=== PATIENT | male | born 1985 | race Caucasian/White ===

== ENCOUNTER 2017-05-30 20:14 | Emergency (ER) | payer OTHER ==
[~2017-05-30] VITALS: Ht 182.9 cm; Wt 79.4 kg
[~2017-05-30 20:14] MED LIST: ALPR0.25 PO; CLON0.5T PO; QUET25TA PO
--- NOTE | 2017-05-30 20:35 | NUR ---
To bed 8 a 31 yo male patient bb self; back pain, ran out of pain meds; SI without plan. vss. nad noted. safety and comfort measures in place. needs anticipated.
[2017-05-30 21:02] LABS: APPEARANCE,URINE Clear (CLEAR); BILIRUBIN,URINE SMALL (NEGATIVE); BLOOD, URINE Negative Ery/uL (NEGATIVE); COLOR,URINE Yellow (YELLOW); KETONES,URINE 15 (NEGATIVE); LEUKOCYTE ESTERASE ,URINE Negative (NEGATIVE); NITRITE, URINE Negative (NEGATIVE); PH,URINE 7.5 (5.0-8.0); PROTEIN,URINE 100 mg/dl (NEGATIVE); UGLUCOSE Negative (NEGATIVE); UROBILINOGEN,URINE 0.2 EU/dL (0.2)
[2017-05-30] MEDS ORDERED: TRAMADOL HCL 50 MG TABLET ONE (21:04)
[2017-05-30] MEDS: TRAMADOL HCL 50 MG TABLET PO ONE (21:06)
[2017-05-30 21:07] LABS: BASOPHILS # (AUTO) 0.3 /CMM (0.0-0.2); BASOPHILS % (AUTO) 1.9 % (0.0-2.0); EOSINOPHILS % (AUTO) 0.3 % (0.0-6.0); HEMATOCRIT 48 % (39-51); LYMPHOCYTES # (AUTO) 1.3 /CMM (0.8-4.8); MEAN CORPUSCULAR HEMOGLOBIN 31 PG (26.0-33.0); MEAN CORPUSCULAR HGB CONC 36 g/dl (31.0-36.0); MEAN CORPUSCULAR VOLUME 88 fL (80-96); MONOCYTES # (AUTO) 0.6 /CMM (0.1-1.30); MONOCYTES % (AUTO) 4.5 % (2.0-12.0); NEUTROPHILS # (AUTO) 11.8 /CMM (1.8-8.9); NEUTROPHILS % (AUTO) 84.3 % (43.0-81.0); PLATELET COUNT (AUTO) 249 /CMM (150-450); RDW COEFFICIENT OF VARIATION 11.7 (11.5-15.0); RED BLOOD CELL COUNT(AUTO) 5.45 MIL/uL (4.5-6.0)
[2017-05-30 21:16] LABS: CALCIUM, SERUM 10.3 mg/dL (8.5-10.1); CARBON DIOXIDE 28 mmol/L (21-32); CHLORIDE 97 mmol/L (98-107); CREATININE 1.2 mg/dL (0.6-1.3); GLUCOSE 109 mg/dL (74-106); POTASSIUM 3.9 mmol/L (3.5-5.1); SODIUM SERUM 138 mmol/L (136-145); UREA NITROGEN, BLOOD 16 mg/dL (7-18)
[2017-05-30 21:27] LABS: ACETAMINOPHEN < 10 ug/ml (10-30); ALANINE AMINOTRANSFERASE 9 U/L (12-78); ALBUMIN 4.3 g/dL (3.4-5.0); ALCOHOL, BLOOD < 3 mg/dL (0-0); ALKALINE PHOSPHATASE 120 U/L (46-116); ASPARTATE AMINOTRANSFERASE 20 U/L (15-37); BILIRUBIN,DIRECT 0.1 mg/dL (0.0-0.2); BILIRUBIN,TOTAL 0.3 mg/dL (0.2-1.0); SALICYLATE 2.6 mg/dL (2.8-20.0); TOTAL PROTEIN, SERUM 8.9 g/dL (6.4-8.2)
[2017-05-30 21:44] LABS: BACTERIA,URINE None seen /HPF (None Seen); MUCUS,URINE Few /LPF (None Seen); RBC,URINE 0-2 /HPF (0-2); SQUAMOUS EPITHELIAL CELL,UR Moderate /HPF (None Seen); WBC,URINE 0-2 /HPF (0-3)
[2017-05-30] MEDS ORDERED: LORAZEPAM 1 MG TABLET ONE (22:01)
[2017-05-30] MEDS: LORAZEPAM 1 MG TABLET PO ONE (22:03)
--- NOTE | 2017-05-30 23:53 | NUR ---
PT ACCEPTED TO [facility]. DR RAMEY, # FOR REPORT [phone] EXT [phone]
--- NOTE | 2017-05-31 | NUR ---
[facility] CALLED FOR TRANSPORT. ETA [phone].
--- NOTE | 2017-05-31 01:33 | NUR ---
spoke to Mark CHEN at [facility] and he said, he "wont take the patient because they dont have pain medicine and they dont have collections assistant to help patient." Charge Nurse Edilson notified.
--- NOTE | 2017-05-31 02:40 | NUR ---
ENCOURAGED PATIENT TO REST AND SLEEP. VSS. NAD NOTED.
[2017-05-31] MEDS ORDERED: LORAZEPAM 1 MG TABLET ONE (06:52)
[2017-05-31] MEDS ORDERED: IBUPROFEN 600 MG TABLET PO ONE (06:52)
[2017-05-31] MEDS: IBUPROFEN 600 MG TABLET PO ONE (06:54)
[2017-05-31] MEDS: LORAZEPAM 1 MG TABLET PO ONE (06:54)
--- NOTE | 2017-05-31 07:15 | NUR ---
report received from Jessica CHEN for [facility]. NAD noted. all needs attended to.
--- NOTE | 2017-05-31 08:02 | NUR ---
pt on phone with
--- NOTE | 2017-05-31 10:06 | NUR ---
PT ON PHONE WITH AGAIN. CALLED FOR FOOD TRAY.
--- NOTE | 2017-05-31 10:13 | NUR ---
GIVEN MEAL TRAY. REPORTS CONTINUED BACK PAIN; NOTIFIED.
[2017-05-31] MEDS: HYDROCODONE/APAP 10/325MG 1 EA TABLET PO ONE (10:16)
[2017-05-31] MEDS ORDERED: HYDROCODONE/APAP 10/325MG 1 EA TABLET ONE (10:16)
--- NOTE | 2017-05-31 10:29 | NUR ---
SPOKE WITH JOE AT [facility] REGARDING ADMISSION; CLARIFIED THAT PT IS AMBULATORY AND SELF-CARE. SHE ASKED TO HAVE A PACKET FAXED TO HER.
--- NOTE | 2017-05-31 12:09 | NUR ---
RESTING QUIETLY, NAD NOTED
--- NOTE | 2017-05-31 12:58 | NUR ---
REPORT GIVEN TO RN AT [facility]
--- NOTE | 2017-05-31 13:03 | NUR ---
AMBULNZ ETA WITHIN 30 MINS
--- NOTE | 2017-05-31 13:13 | NUR ---
PROVIDED WITH LUNCH, NAD NOTED, ALL NEEDS ATTENDED TO.
[2017-05-31 14:00] VITALS: BP 135/76
--- NOTE | 2017-05-31 14:00 | NUR ---
PT DISCHARGED VIA AMBULNZ BLS UNIT TO [facility] IN STABLE CONDITION
== END 2017-05-31 14:02 ==
LOC: ER 20:16
DX: R45.851 Suicidal ideations (principal); G89.29 Other chronic pain; F19.10 Other psychoactive substance abuse, uncomplicated; F32.9 Major depressive disorder, single episode, unspecified; F90.9 Attention-deficit hyperactivity disorder, unspecified type; F17.200 Nicotine dependence, unspecified, uncomplicated; Z86.19 Personal history of other infectious and parasitic diseases; Z59.0 Homelessness
CPT/HCPCS: 36415; 80048; 80076; 80305; 80329; 81001; 85025; 99285; A4606; G0480 ×2; Z7610; 81000-TC

== ENCOUNTER 2019-02-08 16:00 | Inpatient (IN) | payer OTHER ==
[2019-02-08] MEDS ORDERED: LORAZEPAM INJ 2 MG/ML VIAL ONE (16:09)
[2019-02-08] MEDS ORDERED: IBUP-1955 PO (16:20)
[2019-02-08] MEDS ORDERED: VALS80TA31 PO (16:20)
[2019-02-08] MEDS ORDERED: MIDAZOLAM HCL 100 MG in IV NS 0.9% 80 ML IV PRN ×4 (16:30)
[2019-02-08] MEDS ORDERED: ETOMIDATE 2 MG/ML VIAL IV ONE (16:30)
[2019-02-08] MEDS ORDERED: LORAZEPAM INJ 2 MG/ML VIAL IVP ONE (16:30)
[2019-02-08] MEDS ORDERED: IV NS 0.9% 1,000 ML BAG IV ONE ×2 (16:30→18:30)
[2019-02-08] MEDS ORDERED: ROCURONIUM BROMIDE 100 MG/10 ML VIAL IV ONE (16:30)
[2019-02-08] MEDS ORDERED: FENTANYL CITRATE IV 1,250 MCG in IV NS 0.9% 250ML IV PRN (16:30)
[2019-02-08] MEDS ORDERED: KEY,NONCONTROL,TO KEEP IN PYXI 1 EA MC ONE (16:47)
[2019-02-08] MEDS ORDERED: LEVETIRACETAM (500MG) 1,000 MG in IV NS 0.9% 100 ML IV SCH (17:00)
[2019-02-08] MEDS ORDERED: IV PREMIX 0.45% NS + KCL 1,000 ML IV ONE (18:05)
[2019-02-08] MEDS ORDERED: ACETAMINOPHEN 650 MG/SUPP.RECT RC PRN (19:30)
[2019-02-08] MEDS ORDERED: POTASSIUM CHLORIDE 10 MEQ/50 ML PREMIXED IVPB FOR PERIPHERAL LINE IV ONE (20:00)
[2019-02-08] MEDS ORDERED: IPRATROPIUM NEB FS 0.5 MG/2.5 ML AMPUL.NEB NEB PRN (20:00)
[2019-02-08] MEDS ORDERED: ALBUTEROL FS 2.5 MG/0.5 ML VIAL.NEB NEB PRN (20:00)
[2019-02-08] MEDS: Potassium Chloride 20 MEQ in IV D5/ 0.9% NACL 1,000 ML IV PRN (20:19)
[2019-02-08] MEDS: POTASSIUM CL. PREMIX PERIPHER. 50 ML IV SCH ×4 (20:19→23:14)
[2019-02-08] MEDS: PROPOFOL 100 ML IV PRN (20:20)
[2019-02-08] MEDS: LEVETIRACETAM (500MG) 500 MG in IV NS 0.9% 100 ML IV SCH (20:21)
[2019-02-08] MEDS: ENOXAPARIN SODIUM 40 MG/0.4 ML DISP.SYRIN SQ SCH (21:01)
[2019-02-08] MEDS: FAMOTIDINE/PF INJ 20 MG/2 ML VIAL IV SCH (21:01)
[2019-02-09] MEDS: PROPOFOL 100 ML IV PRN ×3 (03:16→12:20)
[2019-02-09] MEDS ORDERED: HYDROMORPHONE INJ 0.5 MG/0.5 ML SYRINGE IV PRN (06:30)
[2019-02-09] MEDS ORDERED: LORAZEPAM INJ 2 MG/ML VIAL IV PRN (06:30)
[2019-02-09] MEDS: Potassium Chloride 20 MEQ in IV D5/ 0.9% NACL 1,000 ML IV PRN ×2 (07:09→17:51)
[2019-02-09] MEDS ORDERED: HYDROMORPHONE 1 MG/1 ML DISP.SYRIN IV PRN (07:17)
[2019-02-09] MEDS ORDERED: POTASSIUM CHLORIDE 10 MEQ/50 ML PREMIXED IVPB FOR PERIPHERAL LINE IV ONE (08:00)
[2019-02-09] MEDS: FAMOTIDINE/PF INJ 20 MG/2 ML VIAL IV SCH ×3 (08:22→21:11)
[2019-02-09] MEDS: POTASSIUM CL. PREMIX PERIPHER. 50 ML IV SCH ×4 (08:22→11:22)
[2019-02-09] MEDS: LEVETIRACETAM (500MG) 500 MG in IV NS 0.9% 100 ML IV SCH ×3 (08:22→21:11)
[2019-02-09] MEDS ORDERED: ETOMIDATE 2 MG/ML VIAL IV ONE (08:24)
[2019-02-09] MEDS ORDERED: ROCURONIUM BROMIDE 50 MG/5 ML IV ONE (08:24)
[2019-02-09] MEDS ORDERED: METHADONE HCL 10 MG TABLET PO SCH (18:00)
[2019-02-09] MEDS: ENOXAPARIN SODIUM 40 MG/0.4 ML DISP.SYRIN SQ SCH ×2 (21:00→21:11)
[2019-02-09] MEDS ORDERED: LEVOFLOXACIN (250MG) 250 MG TABLET PO SCH ×2 (22:00→22:50)
[2019-02-09] MEDS ORDERED: LEVOFLOXACIN (250MG) 250 MG TABLET ONE (22:36)
[2019-02-10] MEDS ORDERED: LEVOFLOXACIN (250MG) 250 MG TABLET PO SCH (22:30)
== END 2019-02-09 22:36 | disposition left against medical advice (07) | DRG 812 ==
DX: T42.8X1A Poisoning by antiparkinsonism drugs and other central muscle-tone depressants, accidental (unintentional), initial encounter (principal); J96.00 Acute respiratory failure, unspecified whether with hypoxia or hypercapnia; R40.2122 Coma scale, eyes open, to pain, at arrival to emergency department; G92 Toxic encephalopathy; F19.10 Other psychoactive substance abuse, uncomplicated; T42.4X1A Poisoning by benzodiazepines, accidental (unintentional), initial encounter; Y92.89 Other specified places as the place of occurrence of the external cause; E87.6 Hypokalemia; M62.82 Rhabdomyolysis; F31.9 Bipolar disorder, unspecified; I10 Essential (primary) hypertension; G40.909 Epilepsy, unspecified, not intractable, without status epilepticus; Z86.19 Personal history of other infectious and parasitic diseases; R40.2342 Coma scale, best motor response, flexion withdrawal, at arrival to emergency department; R40.2242 Coma scale, best verbal response, confused conversation, at arrival to emergency department

== ENCOUNTER 2019-04-16 14:35 | Emergency (ER) | payer OTHER ==
[~2019-04-16] VITALS: Ht 185.4 cm; Wt 72.6 kg
[~2019-04-16 14:35] MED LIST changes: -ALPR0.25 PO; -CLON0.5T PO; +IBUP-1955 PO; -QUET25TA PO; +VALS80TA31 PO
--- NOTE | 2019-04-16 14:36 | NUR ---
PT [id number], HOMELESS, C/O ABD PAIN x 2 DAYS, HAD HEROIN TODAY, PT IS AAOX4, NOT IN RESPIRATORY DISTRESS, HOOKED TO MONITOR, KEPT RESTED AND COMFORTABLE, WILL CONTINUE TO MONITOR.
--- NOTE | 2019-04-16 14:41 | NUR ---
SEEN AND EXAMINED BY .
[2019-04-16] MEDS ORDERED: ONDANSETRON HCL/PF 4 MG/2 ML VIAL ONE (14:44)
[2019-04-16] MEDS: IV NS 0.9% 1,000 ML BAG IV ONE (15:01)
[2019-04-16] MEDS: ONDANSETRON HCL/PF 4 MG/2 ML VIAL IVP ONE (15:02)
--- NOTE | 2019-04-16 15:02 | NUR ---
IV LINE ESTABLISHED, BLOOD DRAWN AND SENT TO LAB.
--- NOTE | 2019-04-16 15:03 | NUR ---
URINAL GIVEN, BUT UNABLE TO PROVIDE URINE SPECIMEN THIS TIME.
[2019-04-16 15:09] LABS: BASOPHILS # (AUTO) 0.1 /CMM (0.0-0.2); BASOPHILS % (AUTO) 0.9 % (0.0-2.0); EOSINOPHILS % (AUTO) 2.2 % (0.0-6.0); HEMATOCRIT 43 % (39-51); HEMOGLOBIN 13.9 g/dL (13.5-17.5); LYMPHOCYTES # (AUTO) 1.8 /CMM (0.8-4.8); LYMPHOCYTES % (AUTO) 21.5 % (20.0-44.0); MEAN CORPUSCULAR HGB CONC 33 g/dl (31.0-36.0); MEAN CORPUSCULAR VOLUME 87 fL (80-96); MONOCYTES # (AUTO) 0.8 /CMM (0.1-1.30); MONOCYTES % (AUTO) 10.3 % (2.0-12.0); NEUTROPHILS # (AUTO) 5.3 /CMM (1.8-8.9); NEUTROPHILS % (AUTO) 65.1 % (43.0-81.0); PLATELET COUNT (AUTO) 412 /CMM (150-450); RED BLOOD CELL COUNT(AUTO) 4.92 MIL/uL (4.5-6.0); WHITE BLOOD COUNT (AUTO) 8.2 K/uL (4.3-11.0)
[2019-04-16 15:14] LABS: CALCIUM, SERUM 9.5 mg/dL (8.5-10.1); CREATININE 1.2 mg/dL (0.6-1.3); POTASSIUM 3.8 mmol/L (3.5-5.1)
[2019-04-16 15:20] LABS: ALBUMIN 3.6 g/dL (3.4-5.0); BILIRUBIN,DIRECT 0.1 mg/dL (0.0-0.2); BILIRUBIN,TOTAL 0.2 mg/dL (0.2-1.0); TOTAL PROTEIN, SERUM 8.8 g/dL (6.4-8.2)
--- NOTE | 2019-04-16 16:54 | NUR ---
IV removed. Catheter intact and site benign. Pressure and 4x4 applied to site. No bleeding noted.Patient discharged to home in stable condition. Written and verbal after care instructions given. Patient verbalizes understanding of instruction.
[2019-04-16 16:55] VITALS: BP 122/71
== END 2019-04-16 17:03 | disposition home or self-care (01) ==
LOC: ER 14:36
DX: R11.2 Nausea with vomiting, unspecified (principal); R19.7 Diarrhea, unspecified; F17.200 Nicotine dependence, unspecified, uncomplicated; Z86.19 Personal history of other infectious and parasitic diseases; Z79.899 Other long term (current) drug therapy
CPT/HCPCS: 36415; 80048; 80076; 83690; 85025; 96361; 96374; 99283; J2405; J7030